=== PATIENT | female | born 1950 | race Hispanic/Latino ===

== ENCOUNTER → 2019-07-03 | Day surgery (SDC) | payer MEDICARE ==
[2019-06-27 11:26] LABS: BASOPHILS # (AUTO) 0.1 (0.0-0.1); BASOPHILS % 0.6 % (0.0-1.0); EOSINOPHILS # (AUTO) 0.2 (0.0-0.4); EOSINOPHILS % 2.1 % (0.0-6.0); HEMATOCRIT 42.7 % (34.2-44.1); HEMOGLOBIN 15.1 g/dL (12.0-16.0); LYMPHOCYTES # (AUTO) 2.8 (1.0-3.2); LYMPHOCYTES % 34.2 % (18.0-39.1); MEAN CORPUSCULAR HEMOGLOBIN 31.1 pg (28-32); MEAN CORPUSCULAR HGB CONC 35.4 g/dL (31-35); MONOCYTES # (AUTO) 0.7 (0.2-0.8); MONOCYTES % 8.4 % (4.4-11.3); NEUTROPHILS # (AUTO) 4.4 (2.1-6.9); NEUTROPHILS % 54.5 % (38.7-80.0); PLATELET COUNT 305 x10e3/uL (140-360); RED BLOOD COUNT 4.85 x10e6/uL (3.6-5.1); RED CELL DISTRIBUTION WIDTH 11.8 % (11.7-14.4)
[2019-06-27 11:45] LABS: ALANINE AMINOTRANSFERASE 23 IU/L (0-55); ALBUMIN 4.3 g/dL (3.5-5.0); ALBUMIN/GLOBULIN RATIO 1.1 (0.8-2.0); ALKALINE PHOSPHATASE 99 IU/L (40-150); ANION GAP 14.2 mmol/L (8-16); BLOOD UREA NITROGEN 9 mg/dL (7-26); BUN/CREATININE RATIO 14 (6-25); CALCIUM 10.1 mg/dL (8.4-10.2); CARBON DIOXIDE 26 mmol/L (22-29); CHLORIDE 100 mmol/L (98-107); CREATININE, SERUM 0.66 mg/dL (0.57-1.11); EST GLOMERULAR FILTRATION RATE > 60 ML/MIN (60-); GLUCOSE 127 mg/dL (74-118); POTASSIUM 4.2 mmol/L (3.5-5.1); SODIUM 136 mmol/L (136-145)
[2019-07-03] VITALS (16 sets, daily range): BP systolic 119–177; BP diastolic 66–87
[~2019-07-03] VITALS: Ht 147.3 cm; Wt 59.9 kg
[~2019-07-03] MED LIST: ALPRAZOLAM 0.5 MG TAB ONE; AMLODIPINE BESYL5 MG PO; ASPIRIN 325 MG TAB ONE; BENICAR HCT 401 EAC1 PO; BIVALRIUDIN 250 MG/VIAL VIAL IV ONE; COLESTIPOL HCL1 GM PO; DIPHENHYDRAMINE HCL 25 MG CAP ONE; FENTANYL CITRATE/PF 100MCG/2 ML INJ ONE; GLYBURIDE5 MG PO; HEPARIN SOD/SOD CHLORIDE 2,000 ML ONE; HYDROCODONE/APAP 5MG-325MG TAB ONE; HYDROCODONE/APAP 5MG-325MG TAB PO ONE; IOPAMIDOL 370 MG/ML 200 ML INFUS..BTL INJ ONE; LIDOCAINE HCL 2% LOCAL 20 ML VIAL ONE; MIDAZOLAM HCL 2 MG/2 ML VIAL ONE; PRASUGREL 10 MG TAB ONE; SODIUM CHLORIDE 0.9% 1000ML 1,000 ML ONE; SODIUM CHLORIDE 0.9% 50ML 50 ML ONE; TYLENOL WITH C1 EACH PO; VERAPAMIL HCL 2.5 MG/ML 2 ML VIAL ONE; VICTOZA SC; VITAMIN D350000 UNIT PO
--- OUTSIDE RECORDS SUMMARY | 2019-07-03 11:12 | XMS REPORT ---
Author [facility] Address Unknown Phone Unavailable Care Team Providers Care Ice Cream Server Name Role Phone Unavailable Unavailable Payers Payer Name Policy Type Policy Number Effective Date Expiration Date Problems This patient has no known problems. Allergies, Adverse Reactions, Alerts Allergy Name Allergy Type Status Severity Reaction(s) Onset Date Inactive Date Treating Clinician Comments No Known Allergies DA Active U 2019-05-29 00:00:00 No Known Allergies DA Active U 2016-01-28 00:00:00 Medications This patient has no known medications. Encounters Start Date/Time End Date/Time Encounter Type Admission Type Attending Clinicians Care Facility Care Department Encounter ID 2019-01-09 07:56:00 2019-01-09 07:56:00 Outpatient [id number] Results Test Description Test Time Test Comments Text Results Atomic Results Result Comments - XR TIBIA/FIBULA 2 V RT 2019-05-29 13:51:00 Name: TIKI DEXTER [facility] : 1950 Age/S:68 /F [address] [facility] Unit#:[id number] Loc: [place] [address] Phys: Dorothy Lagos [employer] Dis Date: PHONE #: [phone] Status: REG ER FAX #: [phone] Exam Date: 05/29/2019 Reason: ground level fall EXAMS: CPT CODE: [id number] XR TIBIA/FIBUL[place] 2 [place] [address] HISTORY: Fall and pain. COMPARISON: None available. 2 views of the right leg: No acute fracture or dislocation. Calcified enchondroma in the proximal tibial metaphysis. Arthrodesis with old fracture deformity of the ankle joint with multiple screws and plates. Calcification of the interosseous ligament of the distal tibia and fibula as well. The knee joint is narrowed in all 3 compartments. IMPRESSION: No acute fracture or dislocation. Arthrodesis of the ankle joint with old fracture deformity. at 1351 Reported and signed by: Jef Romero M.D. CC: Technologist: Carolee Drake Trnscrpt Data: 05/29/2019 (3021) [email or web address] Orig Print D/T: S: 05/29/2019 (5003) PAGE 1 Signed Report - XR FOOT 3 + V RT 2019-05-29 13:40:00 [facility] 1950 Age/S:68 /F [address] [facility] Unit#:[id number] Loc: [place] [address] Phys: Dorothy Lagos [employer] Dis Date: PHONE #: [phone] Status: REG FAX #: [phone] Exam Date: 05/29/2019 Reason: ground level fall EXAMS: CPT CODE: [id number] XR FOOT 3 + V RT [address] HISTORY: Fall and pain. COMPARISON: None available. 3 views of the left hand and wrist: No acute fracture or dislocation. Polyarticular joint space narrowing. No erosive or destructive changes are noted. No AVN of the lunate or the scaphoid bones are noted. IMPRESSION: No acute fracture or dislocation. Polyarticular joint space narrowing. 3 views of the right foot and ankle: Arthrodesis of the ankle joint with multiple screws and plate with complete fusion of the tibia talar and the tibiocalcaneal joint spaces. The tarsal joints are also fused. Fusion of the interosseous ligament distally within the tibia the fibula. Osteoporosis. Complete loss of joint space of the DIP and PIP level of the second through the fifth digits. Pes planus. Plantar calca meggan enthesophyte. IMPRESSION: No acute fracture or dislocation. Arthrodesis at the ankle joint with multiple screws and plates. No erosive or destructive change. Osteoporosis limits evaluation. at 1340 Reported and signed by: Jef Romero M.D. CC: Technologist: Valerie Truong Data: 05/29/2019 (1340) [email or web address] Orig Print D/T: S: 05/29/2019 (2278) PAGE 1 Signed Report - XR ANKLE 3 + V RT 2019-05-29 13:40:00 Name: TIKI DEXTER [facility] : 1950 Age/S:68 /F [address] [facility] Unit#:[id number] Loc: [place] [address] Phys: Dorothy Lagos NP Dis Date: PHONE #: [phone] Status: REG ER FAX #: [phone] Exam Date: 05/29/2019 Reason: ground level fall EXAMS: CPT CODE: [id number] XR ANKLE 3 + V RT [address]106 HISTORY: Fall and pain. COMPARISON: None available. 3 views of the left hand and wrist: No acute fracture or dislocation. Polyarticular joint space narrowing. No erosive or destructive changes are noted. No AVN of the lunate or the scaphoid bones are noted. IMPRESSION: No acute fracture or dislocation. Polyarticular joint space narrowing. 3 views of the right foot and ankle: Arthrodesis of the ankle joint with multiple screws and plate with complete fusion of the tibia talar and the tibiocalcaneal joint spaces. The tarsal joints are also fused. Fusion of the interosseous ligament distally within the tibia the fibula. Osteoporosis. Complete loss of joint space of the DIP and PIP level of the second through the fifth digits. Pes planus. Plantar calca meggan enthesophyte. IMPRESSION: No acute fracture or dislocation. Arthrodesis at the ankle joint with multiple screws and plates. No erosive or destructive change. Osteoporosis limits evaluation. at 1340 Reported and signed by: Jef Romero M.D. CC: Technologist: Valerie Truong Data: 05/29/2019 (1340) [email or web address] Orig Print D/T: S: 05/29/2019 (8704) PAGE 1 Signed Report - XR WRIST 3 + V LT 2019-05-29 13:40:00 Name: TIKI DEXTER [facility] : 1950 Age/S:68 /F [address] [facility] Unit#:[id number] Loc: [place] [address] Phys: LagosDorothy Sangeeta [employer] Dis Date: PHONE #: [phone] Status: REG ER FAX #: [phone] Exam Date: 05/29/2019 Reason: ground level fall EXAMS: CPT CODE: [id number] XR WRIST 3 + [place] [address] HISTORY: Fall and pain. COMPARISON: None available. 3 views of the left hand and wrist: No acute fracture or dislocation. Polyarticular joint space narrowing. No erosive or destructive changes are noted. No AVN of the lunate or the scaphoid bones are noted. IMPRESSION: No acute fracture or dislocation. Polyarticular joint space narrowing. 3 views of the right foot and ankle: Arthrodesis of the ankle joint with multiple screws and plate with complete fusion of the tibia talar and the tibiocalcaneal joint spaces. The tarsal joints are also fused. Fusion of the interosseous ligament distally within the tibia the fibula. Osteoporosis. Complete loss of joint space of the DIP and PIP level of the second through the fifth digits. Pes planus. Plantar calca meggan enthesophyte. IMPRESSION: No acute fracture or dislocation. Arthrodesis at the ankle joint with multiple screws and plates. No erosive or destructive change. Osteoporosis limits evaluation. at 1340 Reported and signed by: Jef Romero M.D. CC: Technologist: Valerie Drake Trnscrpt Data: 05/29/2019 (8150) [email or web address] Orig Print D/T: S: 05/29/2019 (0543) PAGE 1 Signed Report - XR HAND 3 + V LT 2019-05-29 13:40:00 Name: TIKI DEXTER [facility] : 1950 Age/S:68 /F [address] [facility] Unit#:[id number] Loc: [place] [address] Phys: Dorothy Lagos HANNAH Dis Date: PHONE #: [phone] Status: REG ER FAX #: [phone] Exam Date: 05/29/2019 Reason: ground level fall EXAMS: CPT CODE: [id number] XR HAND 3 + [place] [address] HISTORY: Fall and pain. COMPARISON: None available. 3 views of the left hand and wrist: No acute fracture or dislocation. Polyarticular joint space narrowing. No erosive or destructive changes are noted. No AVN of the lunate or the scaphoid bones are noted. IMPRESSION: No acute fracture or dislocation. Polyarticular joint space narrowing. 3 views of the right foot and ankle: Arthrodesis of the ankle joint with multiple screws and plate with complete fusion of the tibia talar and the tibiocalcaneal joint spaces. The tarsal joints are also fused. Fusion of the interosseous ligament distally within the tibia the fibula. Osteoporosis. Complete loss of joint space of the DIP and PIP level of the second through the fifth digits. Pes planus. Plantar calca meggan enthesophyte. IMPRESSION: No acute fracture or dislocation. Arthrodesis at the ankle joint with multiple screws and plates. No erosive or destructive change. Osteoporosis limits evaluation. at 1340 Reported and signed by: Jef Romero M.D. CC: Technologist: Valerie Drake Trnscrpt Data: 05/29/2019 (8892) [email or web address] Orig Print D/T: S: 05/29/2019 (3801) PAGE 1 Signed Report - MRI BRAIN W/O CONTRAST 2018-12-22 16:32:00 FAX: [place]: St: REG Name: TIKI DEXTER [facility] : 1950 Age/S: 68/F [address] Unit #: [id number] Loc: [place] [address] Phys: SHANNEN QUEZADA Acct: [id number] Dis Date: Status: REG CLI PHONE #: [phone] Exam Date: 12/22/2018 1528 FAX #: [phone] Reason: R51 EXAMS: CPT CODE: [id number] MRI BRAIN W/O CONTRAST 70845 TECHNIQUE - MRI BRAIN W/O CONTRAST . COMPARISON: CT brain 11/24/2018 HISTORY: 68 years Female R51 FINDINGS: Supra-tentorial and Posterior fossa: No T2 or FLAIR sequence hyperintensities. No acute hemorrhage. No acute ischemic change. No cerebral or cerebellar edema. No midline shift. 3 mm old lacunar infarct versus prominent prevascular space right basal ganglia. Mild cerebral volume loss. Cervical medullary junction: No abnormalities. Ventricles and basal cisterns: No hydrocephalus. Basal cisterns are normal. Sella and para-sellar structures: No pituitary enlargement or mass. Extra-axial structures: No extra-axial mass, hematoma, or fluid collections. Paranasal Sinuses: Mucosal thickening paranasal sinuses. Mastoids: No abnormalities. Osseous structures: No abnormalities. Visualized Orbits: No abnormalities. Vascular structures: Normal flow void in the major intracranial arterial and venous circulation. IMPRESSION: No acute ischemic change. No hemorrhage. 3 mm old lacunar infarct versus prominent prevascular space right basal ganglia. PAGE 1 Signed Report (CONTINUED) FAX: [place]: St: REG Name: TIKI DEXTER [facility] : 1950 Age/S: 68/F [address] Unit #: [id number] Loc: [place] [address] Phys: SHANNEN QUEZADA Acct: [id number] Dis Date: Status: REG CLI PHONE #: [phone] Exam Date: 12/22/2018 1528 FAX #: [phone] Reason: R51 EXAMS: CPT CODE: [id number] MRI BRAIN W/O CONTRAST 15697 <Continued> Mild cerebral volume loss. at 1632 Reported and signed by: John Mueller M.D. CC: SHANNEN QUEZADA Technologist: Henry Cui)(MR) Trnscrd Date/Time/By: 12/22/2018 (5193) : By: Jonna Orig Print D/T: S: 12/22/2018 (1022) PAGE 2 Signed Report - CT HEAD/BRAIN W/O CONT 2018-11-24 12:56:00 Name: TIKI DEXTER [facility] : 1950 Age/S: 67 / F [address] [facility] Unit #: [id number] Loc: [place] [address] Phys: Modesta Slater MD Acct: [id number] Dis Date: Status: PRE ER PHONE #: [phone] Exam Date: 11/24/2018 1248 FAX #: [phone] Reason: dizziness EXAMS: CPT CODE: [id number] CT HEAD/BRAIN W/O CONT 25190 HISTORY: Dizziness and hypertension. COMPARISON: MRI from August 18, 2017. CT brain without contrast: Automated exposure control. No acute intracranial bleeds or extra- axial collections are noted. No acute territorial vascular infarction is noted. The sulci, gyri, ventricles and subarachnoid spaces and the basilar cisterns are normal for patient's age. No herniation or hydrocephalus or midline shift is noted. Mild periventri cular ischemic gliosis is noted. Age-appropriate atrophy is noted as well. Portions of the visualized paranasal sinuses are normal. No obvious bony calvarial defect is noted. IMPRESSION: No acute intracranial bleeds or extra-axial collections. No acute territorial vascular infarction. No herniation or hydrocephalus or midline shift. Chronic white matter ischemic disease and atrophy . at 1250 Reported and signed by: Jef Romero M.D. CC: Modesta Slater MD Technologist:ISRAEL OSEGUERA, RT(R),CT CTDI: DLP: Trnscb Date/Time: 11/24/2018 (3394) [email or web address] Orig Print D/T: S: 11/24/2018 (6682) CTDI: DLP: PAGE 1 Signed Report
--- NOTE | 2019-07-03 14:03 | NUR ---
1403Received pt to room #09,bedside report received from Akash HUANG. Alert oriented and appropriate, PERRLA, respirations even and unlabored to room air. Pulses x4 extremities equal and strong. Pedal pulses PT/DP X4 Cap fill brisk < 3 sec. Skin warm and dry integrity appears D/I. IV 20g infusing at 100cchr presents healthy w/o s/s of infiltration or complaint. Abdomen soft and supple. pt offered toileting, denies need to urinate or defecate. No personal affects with patient. Family XXXXX. Pt and family verbalizes understanding of POC. Currently w/o complaint of pain or need. Katharine to decrease Tr band at 5pm Potential dc [id number] -ds/adi
--- NOTE | 2019-07-03 15:30 | NUR ---
1530 Pt with c/o MONTE 02/14 offered food w/o relief Normal mini neuro check caffeine beverage given and page Dr Ritter for pain med orders. 1544 received Narco orderx1 dose 5/325 ,given as ordered and stimulation reduced to room ,Family remain at bedside NO gross issues pallor pressure or dysrhythmia. ds/rn
--- NOTE | 2019-07-03 16:30 | NUR ---
1908 resting comfortable No signs of head ache Family remain at bedside Vs stable No gross issue severo pallor pressure or dysrhythmia . ds/rn
--- NOTE | 2019-07-03 17:00 | NUR ---
1700 RADIAL Compression removal: Initial Cuff volume 10 cc 1700 -2cc Removed No hematoma/bleeding noted with normal neurovascular function. 1715 -3cc Removed No hematoma/ bleeding noted with normal neurovascular function. 1730 -2cc Removed No hematoma/bleeding noted with normal neurovascular function. 1745 -3cc Removed No hematoma/ bleeding noted with normal neurovascular function. Air removal completed. Stasis achieved sterile 2x2,Tegaderm, Coban dressing No hematoma, bleeding noted with normal neurovascular function. Wrist splint in place. Pt instructed on POC. Ds/Rn
--- NOTE | 2019-07-03 19:00 | NUR ---
1900 Pt meets DC criteria. Rt Radial assessed for s/s of complication and presence of hematoma. Skin warm, dry, no discolor, and pulses present. IV removed from left forearm. Distal tip appears intact. VS WNL. Pt denies pain, sob, or need at this time. Family at XXXXX. Review of discharge paperwork and follow up instructions. verbalized understanding. Pt to wheelchair and transported to front of hospital. Transferred to private vehicle under own strength w/o incident with DC paperwork in hand. - ds/rn
--- NOTE | 2019-07-04 07:13 | Operative Report ---
DATE OF PROCEDURE: 07/03/2019 SURGEON: Santos Ritter MD PROCEDURE: Cardiac cath. INDICATION: Coronary artery disease, abnormal stress test. PROCEDURES PERFORMED: 1. Left heart catheterization, selective coronary angiography. 2. PTCA and stent placement to the mid and proximal left anterior descending artery. 3. Deployment of right wrist TR band. COMPLICATIONS: None. RECOMMENDATIONS: Lifelong dual antiplatelet therapy. DESCRIPTION OF PROCEDURE: Access obtained in the right radial artery. A 5-Kyrgyz sheath was placed. Coronary angiography demonstrated 50% left anterior descending artery stenosis, proximal 80% and 90% mid left anterior descending artery. Remaining left anterior descending artery diffuse 50% to 70% stenosis 1.5 mm vessel. Circumflex had diffuse 30% to 50% stenosis, right coronary artery mid 50%, right posterior descending artery 50% stenosis. A decision was made to intervene on the left anterior descending artery. The patient received Angiomax for anticoagulation. The left main was cannulated using ALR 125-Kyrgyz guiding catheter, short run-through wire was advanced for support, predilatation with balloon, following which 2 overlapping 2.25 x 26 and 2.5 x 15 mm Resolute Toni stents were deployed at 14 and 18 atmospheres respectively. Excellent end result, 0% residual stenosis, TATYANA-3 flow. No complications. Right wrist TR band applied. The patient discharged home same day. Santos Ritter MD KSB/MODL /[id number]
== END | disposition home or self-care (01) ==
LOC: CATH LAB 11:09
PROVIDERS: ATTEND Internal Medicine Interventional Cardiology
DX: I25.10 Atherosclerotic heart disease of native coronary artery without angina pectoris (principal); I27.20 Pulmonary hypertension, unspecified; R94.39 Abnormal result of other cardiovascular function study; E78.01 Familial hypercholesterolemia; R09.89 Other specified symptoms and signs involving the circulatory and respiratory systems; Z01.812 Encounter for preprocedural laboratory examination; Z79.84 Long term (current) use of oral hypoglycemic drugs; Z68.37 Body mass index [BMI] 37.0-37.9, adult
CPT/HCPCS: 93458; C9600; 36415; 80053; 85025; 99152; 99153; C1725; C1769; C1874; C1887; J0583; J2001; J2250; J3010; J7030; Q9967

== ENCOUNTER → 2019-10-05 | Outpatient (CLI) | payer MEDICARE ==
[~2019-10-05] MED LIST changes: -ALPRAZOLAM 0.5 MG TAB ONE; -ASPIRIN 325 MG TAB ONE; -BIVALRIUDIN 250 MG/VIAL VIAL IV ONE; -DIPHENHYDRAMINE HCL 25 MG CAP ONE; -FENTANYL CITRATE/PF 100MCG/2 ML INJ ONE; -HEPARIN SOD/SOD CHLORIDE 2,000 ML ONE; -HYDROCODONE/APAP 5MG-325MG TAB ONE; -HYDROCODONE/APAP 5MG-325MG TAB PO ONE; -IOPAMIDOL 370 MG/ML 200 ML INFUS..BTL INJ ONE; -LIDOCAINE HCL 2% LOCAL 20 ML VIAL ONE; -MIDAZOLAM HCL 2 MG/2 ML VIAL ONE; -PRASUGREL 10 MG TAB ONE; -SODIUM CHLORIDE 0.9% 1000ML 1,000 ML ONE; -SODIUM CHLORIDE 0.9% 50ML 50 ML ONE; -VERAPAMIL HCL 2.5 MG/ML 2 ML VIAL ONE
--- NOTE | 2019-10-05 13:27 | Diagnostic Imaging Report ---
EXAM: CT Chest WITHOUT intravenous contrast 10/05/2019 12:23 PM INDICATION: Pulmonary nodule COMPARISON: Chest radiograph 09/06/2019 TECHNIQUE: Chest was scanned utilizing a multidetector helical scanner from the lung apex through the level of the adrenal glands without administration of IV contrast. Coronal and sagittal reformations were obtained. Routine protocol was performed. IV CONTRAST: None RADIATION DOSE: Total DLP: 412 mGy*cm. Dose modulation, iterative reconstruction, and/or weight based adjustment of the mA/kV was utilized to reduce the radiation dose to as low as reasonably achievable. COMPLICATIONS: None FINDINGS: LINES/ TUBES: None. LUNGS AND AIRWAYS: The central airways are patent. No focal consolidation or pulmonary edema. Solid left upper lobe pulmonary nodules measure up to 4 mm (series 5 image 36 and 38). PLEURA: The pleural spaces are clear. HEART AND MEDIASTINUM: The thyroid gland is normal. No mediastinal, hilar or axillary lymphadenopathy. The heart is normal in size.. There is no pericardial effusion. Atherosclerotic calcifications involve the aorta, coronary arteries, and proximal great vessels. UPPER ABDOMEN: Status post cholecystectomy. No acute findings. BONES: The visualized bony thorax is within normal limits. SOFT TISSUES: Unremarkable. IMPRESSION: No focal pneumonia or pulmonary edema. Left upper lobe pulmonary nodules measure up to 4 mm. If the patient is high risk, chest CT follow-up in 12 months is optional. If the patient is low risk, no further imaging follow-up is necessary. Atherosclerotic arterial calcifications including of the coronary arteries. Signed by: Quinton Means MD on 10/05/2019 1:25 PM
== END ==
LOC: CT 12:05
PROVIDERS: ATTEND Internal Medicine Interventional Cardiology
DX: R91.8 Other nonspecific abnormal finding of lung field (principal)
CPT/HCPCS: 71250

== ENCOUNTER → 2021-02-12 | Outpatient (CLI) | payer MEDICARE ==
[~2021-02-12] MED LIST changes: +IOPAMIDOL 370 MG/ML 200 ML INFUS..BTL INJ ONE; +SODIUM CHLORIDE 0.9% 50ML 50 ML ONE
== END ==
LOC: CT 11:53
PROVIDERS: ATTEND Nurse Practitioner Family
DX: R06.02 Shortness of breath (principal); R91.8 Other nonspecific abnormal finding of lung field
CPT/HCPCS: 71260; Q9967